=== PATIENT | male | born 1975 | race Two or more races ===

== ENCOUNTER 2018-01-15 11:03 | Outpatient (CLI) | payer OTHER ==
[~2018-01-15 11:03] MED LIST: TORADOL10 MG
== END 2018-01-15 14:48 | disposition home or self-care (01) ==
LOC: RAD 11:03
DX: Z00.01 Encounter for general adult medical examination with abnormal findings (principal)

== ENCOUNTER → 2019-01-12 | Outpatient (CLI) | payer OTHER | END | disposition home or self-care (01) | LOC: RAD 10:09 | DX: Z00.00 Encounter for general adult medical examination without abnormal findings (principal) ==

== ENCOUNTER → 2020-04-06 | Outpatient (CLI) | payer OTHER | END | disposition home or self-care (01) | LOC: RAD 08:08 | PROVIDERS: ATTEND Specialist | DX: Z13.9 Encounter for screening, unspecified (principal) ==

== ENCOUNTER → 2021-04-04 | Outpatient (CLI) | payer OTHER | END | disposition home or self-care (01) | LOC: RAD 11:46 | PROVIDERS: ATTEND Specialist | DX: Z02.79 Encounter for issue of other medical certificate (principal) ==

== ENCOUNTER 2022-06-02 09:29 | Outpatient (CLI) | payer OTHER | END 2022-06-02 09:40 | disposition home or self-care (01) | LOC: RAD 09:29 | DX: R05.9 Cough, unspecified (principal); Z11.1 Encounter for screening for respiratory tuberculosis ==

== ENCOUNTER 2023-03-31 10:15 | Outpatient (CLI) | payer OTHER | END 2023-03-31 10:23 | disposition home or self-care (01) | LOC: SONOGRAMA 10:15 | PROVIDERS: ATTEND Specialist | DX: Z13.29 Encounter for screening for other suspected endocrine disorder (principal) ==

== ENCOUNTER 2024-05-10 10:54 | Outpatient (CLI) | payer OTHER | END 2024-05-10 10:58 | disposition home or self-care (01) | LOC: RAD 10:54 | PROVIDERS: ATTEND Specialist | DX: Z02.79 Encounter for issue of other medical certificate (principal) ==